=== PATIENT | female | born 1975 | race Caucasian/White ===

== ENCOUNTER 2017-03-30 12:01 | Emergency (ER) | payer SELFPAY ==
[~2017-03-30] VITALS: Ht 165.1 cm; Wt 67.1 kg
[~2017-03-30 12:01] MED LIST: ACCUPRIL; ALBU.083IS IH; ALBU90OI INH; AMOCLA875 PO; AMOX500; AMOX500 PO; AMOX875 PO; ATEN50; AZIT250 PO; BENZ100A PO; CEPH500 PO; CLIN150 PO; CLIN300 PO; CLON.1 PO; CLON.2 PO; CLON.5; CLON1; CLON1 PO; CLON2; CLON2 PO; CRUTCH3 USE; CRUTCH4 USE; DOXY100 PO; HYDACE5 PO; HYDPAM50; HYDPAM50 PO; IBUHYD PO; IBUP200 PO; IBUP800; IBUP800 PO; KETO10 PO; LOSHYD; METH10; METH10 PO; METH40; METR500 PO; NAPR250; NAPR500 PO; NAPR550 PO; Naprosyn500 MG PO; OLAN20; OLAN5 PO; OXYACE10; OXYACE5T PO; OXYC10ER PO; OXYC5 PO; PENACE PO; PENVK500 PO; PHENA200 PO; PRED20 PO; PROACE100 PO; PROM25 PO; PROM25S PR; PROP65; QUET100; QUET200; QUET200 PO; QUET25 PO; QUET300; QUET300 PO; QUIN10; RXHYDACE PO; RXPROACE PO; RXPROM25 PO; SEROQUEL; SERT100; SERT100 PO; SERT50; SULTRIDS PO; TRAM50 PO; VENL75; Veetids 500500 MG PO
[2017-03-30] MEDS ORDERED: METPRE4DP PO (14:13)
[2017-03-30] MEDS ORDERED: Veetids 500500 MG PO (14:13)
== END 2017-03-30 14:18 | disposition home or self-care (01) ==
LOC: ER 12:01
DX: J03.90 Acute tonsillitis, unspecified (principal); F17.200 Nicotine dependence, unspecified, uncomplicated; Z88.1 Allergy status to other antibiotic agents; Z90.711 Acquired absence of uterus with remaining cervical stump
CPT/HCPCS: 87430; 99283

== ENCOUNTER 2017-09-11 21:10 | Emergency (ER) | payer MEDICAID ==
[~2017-09-11] VITALS: Ht 167.6 cm; Wt 63.0 kg
[~2017-09-11 21:10] MED LIST changes: +METPRE4DP PO
== END 2017-09-11 22:46 | disposition home or self-care (01) ==
LOC: ER 21:10
DX: N63.0 Unspecified lump in unspecified breast (principal); F31.9 Bipolar disorder, unspecified; Z88.1 Allergy status to other antibiotic agents; F17.200 Nicotine dependence, unspecified, uncomplicated
CPT/HCPCS: 99282

== ENCOUNTER 2018-11-05 13:34 | Emergency (ER) | payer OTHER ==
[~2018-11-05] VITALS: Ht 165.1 cm; Wt 68.0 kg
== END 2018-11-05 15:15 | disposition home or self-care (01) ==
LOC: ER 13:34
DX: K42.9 Umbilical hernia without obstruction or gangrene (principal); Z88.1 Allergy status to other antibiotic agents; F17.200 Nicotine dependence, unspecified, uncomplicated
CPT/HCPCS: 76857; 99284-25